=== PATIENT | female | born 1975 | race Caucasian/White ===

== ENCOUNTER → 2019-07-06 13:51 | Outpatient (CLI) | payer OTHER, SELFPAY ==
--- NOTE | ~2019-07-06 | MMUS_ITS ---
EXAMINATION: MM diagnostic mammo unilat RT, US breast RT limited HISTORY: Right breast asymmetry on screening mammogram TECHNIQUE: Additional 3-D tomosynthesis images of the right breast were performed and synthetic 2-D i mages were generated. CAD analysis was submitted and interpreted. High resolution limited right breas t ultrasound was performed. COMPARISON: 07/03/2019, 06/28/2018, 06/05/2017, 04/29/2016, 04/28/2016 FINDINGS: MAMMOGRAPHIC FINDINGS: There is a return to baseline fibroglandular appearance of the central right breast with spot jasmyn doug views. No suspicious mass or calcification are identified. ULTRASOUND: There is no evidence of focal abnormal solid or cystic lesion in the vicinity of the mammographic fin ding in question. IMPRESSION: 1. No mammographic or sonographic evidence of malignancy. 2. Recommend routine screening mammography in one year. BI-RADS Category 1: Negative Reviewed, dictated and finalized at location A. [employer] [employer] IMPRESSION: 1. No mammographic or sonographic evidence of malignancy. 2. Recommend routine screening mammography in one year. BI-RADS Category 1: Negative
== END ==
PROVIDERS: Visit Provider Obstetrics & Gynecology
DX: R92.8 Other abnormal and inconclusive findings on diagnostic imaging of breast (principal)
CPT/HCPCS: 76642; 77065

== ENCOUNTER 2020-03-27 06:50 | Outpatient (CLI) | payer OTHER, SELFPAY ==
[2020-03-27 07:21] LABS: Basophils Percent Auto 0.7 % (0.2-1.2); Eosinophils Absolute Auto 0.2 K/mm3 (0-0.3); Eosinophils Percent Auto 3.9 % (0-4.4); Hematocrit 39.5 % (37.0-47.0); Immature Granulocyte Absolute 0.01 K/mm3 (0.00-0.031); Immature Granulocyte Percent A 0.2 % (0-0.5); Lymphocytes Absolute Auto 1.96 K/mm3 (0.9-3.2); Lymphocytes Percent Auto 33.6 % (18.3-44.2); Mean Corpuscular HGB Conc 32.9 g/dl (32-36); Mean Corpuscular Hemoglobin 29.3 pg (26-34); Monocytes Absolute Auto 0.4 K/mm3 (0.1-0.6); Monocytes Percent Auto 7.5 % (2.6-8.5); Neutrophils Absolute Auto 3.2 K/mm3 (1.3-6.7); Neutrophils Percent Auto 54.1 % (45.5-73.1); Platelet Count Result 252 k/mm3 (150-375); Red Blood Count 4.44 M/mm3 (4.2-5.4); Red Cell Distribution Width 13.3 % (11.5-14.5); White Blood Count 5.8 K/mm3 (4.5-10.0)
[2020-03-27 07:37] LABS: Alanine Aminotransferase 46 U/L (4-35); Albumin Level 4.4 g/dL (3.5-5.1); Alkaline Phosphatase 54 U/L (38-126); Anion Gap 5 mmol/L (8-16); Aspartate Amino Transferase 51 U/L (14-36); Bilirubin,Total 0.5 mg/dL (0.2-1.3); Blood Urea Nitrogen 11 mg/dL (7-17); Calcium 9.3 mg/dL (8.4-10.2); Carbon Dioxide 30 mmol/L (22-30); Chloride 104 mmol/L (98-107); Cholesterol 238 mg/dL (0-200); Estimated Glomerular Filt Rate > 60; Glucose 98 mg/dL (65-105); HDL Direct 77 mg/dL; Potassium 4.3 mmol/L (3.4-5.0); Sodium 139 mmol/L (137-145); Triglycerides 106 mg/dL (<150)
[2020-03-27 07:48] LABS: LDL Cholesterol Direct 123 mg/dL
== END 2020-03-27 06:51 | disposition home or self-care (01) ==
PROVIDERS: PCP Internal Medicine; Visit Provider Clinical Nurse Specialist
DX: E78.5 Hyperlipidemia, unspecified (principal); Z13.228 Encounter for screening for other metabolic disorders
CPT/HCPCS: 36415; 80053; 80061; 85025

== ENCOUNTER 2020-07-04 17:00 | Outpatient (RCR) | payer OTHER, SELFPAY ==
--- NOTE | 2020-04-24 18:01 | PTOPEVAL ---
PHYSICAL THERAPY EVALUATION AND PLAN OF CARE Thank you for referring Yani James to [facility].? The patient is scheduled to be seen for therapy? 1x/week for 5 weeks. Please review, sign, date and return this plan of care BRANDON. I agree with and certify that the following plan of care is medically necessary. Referring Physician Date Attending Provider: Azeb Solorio NP Evaluation Diagnosis cervical pain, left sided lumbar pain Onset cervical pain = 1month, left sided lumbar pain = chronic Subjective Information cervical pain: reports left Query Text:As Reported By Patient/ sided pain along left sided of Family neck and left medial border of left scpaular and sometimes radiates to the left arm. Ibuprofen helps but caballero sont feel good on stomach. lumbar pain: several years; left sided lumbar pain that wraps around the hip. has had therapy for this in the past. Sitting for a long time and then standing is more difficult Diagnostic Tests X-Rays For This Problem Yes: 2017: cervical stenosis. Self Report Pain Assessment Left Spine, Lumbar Reported Pain Level 4 Pain Description Aching,Tightness Pain Frequency Chronic,Continuous Other Pain Aggravating Factors sitting or laying for prolonged periods Pain Behaviors None Left Spine, Cervical Reported Pain Level 3 Pain Description Aching,Stabbing,Tightness Pain Frequency Acute,Continuous Lowest Pain Intensity 2 Greatest Pain Intensity 10 Other Pain Aggravating Factors working Pain Score Pain Score 3,4: Self Report Interventions Used Interventions Used By Clinicians Exercise Pain Relief Interventions Used By Medication Patient Cervical and Lumbar ROM Cervical ROM Cervical Flexion (0-60) 45 Query Text:Active in Degrees Cervical Extension (0-70) 60 Query Text:Active in Degrees Cervical Rotation Right (0-90) 80 Query Text:Passive in Degrees Cervical Rotation Left (0-90) 60 Query Text:Active in Degrees Cervical ROM Comments left rotation = left lateral lean to further motion - no symptoms noted other than some stretching Lumbar ROM Lumbar Extension (0-40)
--- NOTE | 2020-04-29 13:09 | PCPTNOTE ---
Patient called & cancelled scheduled appointment for tomorrow, 04/30/2020, due to family emergency.
--- NOTE | 2020-05-06 09:32 | PCPTNOTE ---
Patient called & cancelled scheduled appointment for 05/09 due stating she has to work.
--- NOTE | 2020-05-28 17:57 | PTOPEVAL ---
PHYSICAL THERAPY PLAN OF CARE UPDATE AND PROGRESS REPORT Thank you for referring Yani James to [facility].? The patient is scheduled to be seen for therapy? 1x/week for 5 weeks. Please review, sign, date and return this plan of care BRANDON. I agree with and certify that the following plan of care is medically necessary. Referring Physician Date Attending Provider: Azeb Solorio NP Progress Diagnosis cervical pain, left sided lumbar pain Onset cervical pain = 1month, left sided lumbar pain = chronic Subjective Information cervical pain: much improved. Query Text:As Reported By Patient/ states cervical pain is Family significantly decreased for the most part. lumbar pain: several years; continues to have significant left sided low back pain. She does feel like therapy is helping, but slowly. Self Report Pain Assessment Left Spine, Lumbar Reported Pain Level 4 Pain Description Aching,Tightness Pain Frequency Chronic,Continuous Other Pain Aggravating Factors sitting or laying for prolonged periods Pain Behaviors None Left Spine, Cervical Reported Pain Level 1 Pain Description Aching,Stabbing,Tightness Pain Frequency Acute,Continuous Lowest Pain Intensity 2 Greatest Pain Intensity 10 Other Pain Aggravating Factors working Pain Score Pain Score 4,1: Self Report Interventions Used Interventions Used By Clinicians Exercise,Joint Mobilization, Manual Therapy Techniques Pain Relief Interventions Used By Exercise Patient Cervical and Lumbar ROM Cervical ROM Cervical Flexion (0-60) 50 Query Text:Active in Degrees Cervical Extension (0-70) 60 Query Text:Active in Degrees Cervical Rotation Right (0-90) 80 Query Text:Passive in Degrees Cervical Rotation Left (0-90) 75 Query Text:Active in Degrees Upper Extremity Range of Motion General Upper Extremity Range of Motion Reason Not Measured WFL/Left,WFL/Right Lower Extremity Muscle Strength Testing General Lower Extremity Strength Gross Lower Extremity Strength hip flexion: 4/5 knee flexion/extension: 5/5 hip abduction: right = 3+/5, left = 4-/5 hip extension: 3/5 each side Upper Extremity Muscle Strength Testing General Upper Extremity Strength Gross Upper Extremity Strength Comments right grossly: 4+/5
--- NOTE | 2020-06-11 13:12 | PCPTNOTE ---
Patient called & cancelled scheduled appointment this date due to work.
--- NOTE | 2020-06-18 09:08 | PCPTNOTE ---
Patient called & cancelled scheduled appointment this date due to work.
--- NOTE | 2020-07-01 17:40 | PCPTNOTE ---
Patient did not show up for scheduled appointment this date.
--- NOTE | 2020-07-04 17:51 | PTOPEVAL ---
PHYSICAL THERAPY DISCHARGE NOTE Thank you for referring Yani James to [facility].? Please review, sign, date and return this plan of care BRANDON. I agree with and certify that the following plan of care is medically necessary. Referring Physician Date Attending Provider: Azeb Solorio NP Discharge Diagnosis cervical pain, left sided lumbar pain Onset cervical pain = 1month, left sided lumbar pain = chronic Subjective Information cervical pain:continues to be Query Text:As Reported By Patient/ much improved without Family significant complaint lumbar pain: states she feels like she is overstretching the lumbar spine and pain is consistent to somewhat improved Self Report Pain Assessment Left Spine, Lumbar Reported Pain Level 4 Pain Description Aching,Tightness Pain Frequency Chronic,Continuous Other Pain Aggravating Factors sitting or laying for prolonged periods Pain Behaviors None Pain Score Pain Score 4: Self Report Interventions Used Interventions Used By Clinicians Exercise,Joint Mobilization, Manual Therapy Techniques Pain Relief Interventions Used By Exercise Patient Cervical and Lumbar ROM Lumbar ROM Lumbar Flexion Active Ankle Query Text:Hands to: Lumbar Extension (0-40) 12 Query Text:Active in Degrees Lateral Rotation Right (0-45) 30 Query Text:Active in Degrees Lateral Rotation Left (0-45) 30 Query Text:Active in Degrees Lower Extremity Muscle Strength Testing General Lower Extremity Strength Gross Lower Extremity Strength hip flexion: 4+/5 knee flexion/extension: 5/5 hip abduction: right = 4/5, left = 4/5 hip extension: 3+/5 each side Upper Extremity Muscle Strength Testing General Upper Extremity Strength Gross Upper Extremity Strength Comments right grossly: 5/5 left grossly 5/5 Muscle Length Testing Muscle Length Testing Latissmus Dorsi Muscle Length (R) Mild Tightness,(L) Mild Tightness Upper Trapezius Muscle Length (R) Mild Tightness,(L) Mild Tightness Levaetor Scapulae Muscle Length (R) Mild Tightness,(L) Mild Tightness Sternocleidomastoid Muscle Length (R) Mild Tightness,(L) Mild Tightness Pectoralis Major- Clavicular Fibers (R) M
== END 2020-07-05 07:49 | disposition home or self-care (01) ==
LOC: ANHPT 17:00
PROVIDERS: PCP Internal Medicine; Visit Provider Nurse Practitioner
DX: M54.2 Cervicalgia (principal); M54.5 Low back pain
CPT/HCPCS: 97110; 97140; 97162

== ENCOUNTER 2020-07-06 06:56 | Outpatient (CLI) | payer OTHER, SELFPAY ==
[2020-07-06 08:04] LABS: Alanine Aminotransferase 21 U/L (4-35); Albumin Level 4.3 g/dL (3.5-5.1); Alkaline Phosphatase 68 U/L (38-126); Anion Gap 4 mmol/L (8-16); Aspartate Amino Transferase 32 U/L (14-36); Bilirubin,Total 0.4 mg/dL (0.2-1.3); Blood Urea Nitrogen 20 mg/dL (7-17); Calcium 9.5 mg/dL (8.4-10.2); Carbon Dioxide 29 mmol/L (22-30); Chloride 105 mmol/L (98-107); Estimated Glomerular Filt Rate > 60; Glucose 94 mg/dL (65-105); Potassium 4.4 mmol/L (3.4-5.0); Sodium 138 mmol/L (137-145)
[2020-07-06 08:10] LABS: Rheumatoid Factor < 8.6 IU/ML (<12)
== END 2020-07-06 06:57 | disposition home or self-care (01) ==
PROVIDERS: PCP Internal Medicine; Visit Provider Nurse Practitioner
DX: R74.01 Elevation of levels of liver transaminase levels (principal); M25.50 Pain in unspecified joint
CPT/HCPCS: 36415; 80053; 86430

== ENCOUNTER → 2020-07-06 07:43 | Outpatient (CLI) | payer OTHER, SELFPAY ==
--- NOTE | ~2020-07-06 | MM_ITS ---
EXAMINATION: MM screening trey BI w kvng HISTORY: Screening mammogram TECHNIQUE: Craniocaudal and mediolateral oblique 3-D tomosynthesis images were obtained and synthetic 2-D images were generated. CAD analysis was submitted and interpreted. COMPARISON: 07/06/2019 diagnostic right mammogram and limited right breast ultrasound examination 07/03/2019, 06/28/2018, 06/05/2017 bilateral digital screening mammogram examinations BREAST PARENCHYMAL COMPOSITION: There are scattered areas of fibroglandular density. FINDINGS: There is asymmetry in the upper outer quadrant of the right breast. Diagnostic right mammog natalie and right breast ultrasound examination are recommended to differentiate possible 7 mm mass (MLO 24/73) from summation shadow of overlapping fibroglandular stroma. Scattered bilateral benign appearing microcalcifications are noted. Otherwise there is no evidence of suspicious mass, calcification, or architectural distortion to sugg est malignancy in either breast. There has been no other suspicious interval change. IMPRESSION: 1. Upper outer quadrant right breast asymmetry 2. Diagnostic right mammogram and right breast ultrasound examination are recommended. BI-RADS Category 0: Incomplete: Needs additional imaging evaluation. 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 [employer] DEVEL[employer] IMPRESSION: 1. Upper outer quadrant right breast asymmetry 2. Diagnostic right mammogram and right breast ultrasound examination are recom mended. BI-RADS Category 0: Incomplete: Needs additional imaging evaluation.
== END ==
PROVIDERS: Visit Provider Obstetrics & Gynecology
DX: Z12.31 Encounter for screening mammogram for malignant neoplasm of breast (principal); R92.8 Other abnormal and inconclusive findings on diagnostic imaging of breast
CPT/HCPCS: 77063; 77067

== ENCOUNTER → 2020-07-09 12:53 | Outpatient (CLI) | payer OTHER, SELFPAY ==
--- NOTE | ~2020-07-09 | MMUS_ITS ---
EXAMINATION: MM diagnostic mammo unilat RT, US breast RT limited HISTORY: Right breast asymmetry on screening mammogram TECHNIQUE: Additional 3-D tomosynthesis images of the right breast were performed and synthetic 2-D i mages were generated. CAD analysis was submitted and interpreted. High resolution limited right breas t ultrasound was performed. COMPARISON: 07/06/2020, 07/06/2019, 07/03/2019, 06/28/2018, 06/05/2017 FINDINGS: MAMMOGRAPHIC FINDINGS: A mass in the middle third of the upper outer quadrant of the breast 10:00 location 6 cm from the nip ple has a waxing and waning appearance compared to prior examinations. There is also a stable 4 mm ob scured mass in the middle third of the breast at the 11:00 location 7 cm from the nipple. ULTRASOUND: There is a cyst at the 9:00 location 6 cm from the nipple. Cysts are also noted at the 10:00 location 3 cm and 8 cm from the nipple. IMPRESSION: 1. No mammographic or sonographic evidence of malignancy. 2. Recommend routine screening mammography in one year. BI-RADS Category 2: Benign finding(s). 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 [employer] IMPRESSION: 1. No mammographic or sonographic evidence of malignancy. 2. Recommend routine screening mammography in one year. BI-RADS Category 2: Benign finding(s).
== END ==
PROVIDERS: Visit Provider Obstetrics & Gynecology
DX: R92.8 Other abnormal and inconclusive findings on diagnostic imaging of breast (principal)
CPT/HCPCS: 76642; 77065

== ENCOUNTER 2020-08-15 16:38 | Outpatient (CLI) | payer OTHER, SELFPAY ==
--- NOTE | ~2020-08-15 | MR_ITS ---
EXAMINATION: MR lumbar spine wo con EXAM DATE: 08/15/2020 17:14 INDICATION: Low back pain. TECHNIQUE: Multi-sequential, multiplanar MR images of the lumbar spine were obtained without contrast . Sagittal T1, T2, T2 fat saturation images. Axial T2 weighted images. Comparison is made to prior examination from 11/18/2016. FINDINGS: The conus medullaris terminates at the T12-L1 level and has normal signal intensity and mor phology. There are scattered focal signal abnormalities consistent with hemangiomata, otherwise with out focal suspicious marrow signal abnormalities. There is mild disc disease at all lumbar levels. M ild loss of the L3-4 and L4-5 disc height. The vertebral bodies are aligned in the AP dimension. Para spinal soft tissue is unremarkable. Level by level evaluation: T12-L1: Disc does not extend beyond the endplate margin. Facet arthropathy: None. Neural foraminal stenosis: No stenosis. Central canal stenosis: No stenosis. L1-L2: Disc does not extend beyond the endplate margin. Facet arthropathy: Mild. Neural foraminal stenosis: No stenosis. Central canal stenosis: No stenosis. L2-L3: There is a minimal diffuse disc bulge. Facet arthropathy: Mild. Neural foraminal stenosis: No stenosis. Central canal stenosis: No stenosis. L3-L4: There is a mild diffuse disc bulge. Facet arthropathy: Mild to moderate. Neural foraminal stenosis: No stenosis. Central canal stenosis: No stenosis. L4-L5: There is a mild diffuse disc bulge. Facet arthropathy: Mild to moderate. Neural foraminal stenosis: Minimal bilateral. Central canal stenosis: Mild. L5-S1: There is a mild diffuse disc bulge. Facet arthropathy: Mild to moderate. Neural foraminal stenosis: No stenosis. Central canal stenosis: No stenosis. IMPRESSION: 1. Mild lumbar spondylosis with minimal progression compared to 2017. Reviewed, dictated and finalized at location D. 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
== END 2020-08-15 16:39 | disposition home or self-care (01) ==
PROVIDERS: PCP Internal Medicine; Visit Provider Nurse Practitioner
DX: M47.896 Other spondylosis, lumbar region (principal)
CPT/HCPCS: 72148

== ENCOUNTER → 2021-03-20 15:24 | Outpatient (CLI) | payer OTHER, SELFPAY ==
--- NOTE | ~2021-03-20 | XR_ITS ---
XR sacroiliac joints min 3V DATE: 03/20/2021 15:36 INDICATION: Sacroiliac pain TECHNIQUE: Multiple frontal and oblique views of the sacroiliac joints COMPARISON: None FINDINGS: The sacral iliac joints are normally aligned. There is no evidence of fracture, dislocation , erosive change or ankylosis. IMPRESSION: Negative sacroiliac joints Reviewed, dictated and finalized at Location A. Reviewed, dictated and finalized at location B. IMPRESSION: Negative sacroiliac joints
== END ==
PROVIDERS: Visit Provider Nurse Practitioner Family
DX: M53.3 Sacrococcygeal disorders, not elsewhere classified (principal)
CPT/HCPCS: 72202

== ENCOUNTER → 2021-07-09 11:10 | Outpatient (CLI) | payer OTHER, SELFPAY ==
--- NOTE | ~2021-07-09 | MM_ITS ---
EXAMINATION: MM screening [facility] BI w kvng HISTORY: Screening mammogram TECHNIQUE: Craniocaudal and mediolateral oblique 3-D tomosynthesis images were obtained and synthetic 2-D images were generated. CAD analysis was submitted and interpreted. COMPARISON: 07/09/2020, 07/06/2020, 07/06/2019, 07/03/2019, 06/28/2018, 06/05/2017 BREAST PARENCHYMAL COMPOSITION: There are scattered areas of fibroglandular density. FINDINGS: A right breast cyst is again noted. There is no evidence of suspicious mass, calcification, or architectural distortion to suggest malignancy in either breast. There has been no suspicious int erval change. IMPRESSION: 1. No mammographic evidence of malignancy. 2. Recommend routine screening mammography in one year. BI-RADS Category 2: Benign finding(s). 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
== END ==
PROVIDERS: PCP Internal Medicine; Visit Provider Obstetrics & Gynecology
DX: Z12.31 Encounter for screening mammogram for malignant neoplasm of breast (principal)
CPT/HCPCS: 77063; 77067

== ENCOUNTER 2021-08-30 06:58 | Outpatient (CLI) | payer OTHER, SELFPAY ==
[2021-08-30 07:36] LABS: Basophils Percent Auto 0.5 % (0.2-1.2); Eosinophils Absolute Auto 0.2 K/mm3 (0-0.3); Eosinophils Percent Auto 2.5 % (0-4.4); Hematocrit 39.9 % (37.0-47.0); Hemoglobin 12.9 g/dL (12.0-15.0); Immature Granulocyte Absolute 0.02 K/mm3 (0.00-0.031); Immature Granulocyte Percent A 0.3 % (0-0.5); Lymphocytes Absolute Auto 1.88 K/mm3 (0.9-3.2); Lymphocytes Percent Auto 31.1 % (18.3-44.2); Mean Corpuscular HGB Conc 32.3 g/dl (32-36); Mean Corpuscular Hemoglobin 29.5 pg (26-34); Mean Corpuscular Volume 91.3 fl (80-100); Mean Platelet Volume 9.3 fl (7.4-10.4); Monocytes Absolute Auto 0.6 K/mm3 (0.1-0.6); Monocytes Percent Auto 9.1 % (2.6-8.5); Neutrophils Absolute Auto 3.4 K/mm3 (1.3-6.7); Neutrophils Percent Auto 56.5 % (45.5-73.1); Platelet Count Result 247 k/mm3 (150-375); Red Blood Count 4.37 M/mm3 (4.2-5.4); Red Cell Distribution Width 13.4 % (11.5-14.5)
[2021-08-30 07:47] LABS: Alanine Aminotransferase 22 U/L (4-35); Albumin Level 4.1 g/dL (3.5-5.1); Alkaline Phosphatase 70 U/L (38-126); Anion Gap 3 mmol/L (8-16); Aspartate Amino Transferase 30 U/L (14-36); Bilirubin,Total 0.5 mg/dL (0.2-1.3); Blood Urea Nitrogen 12 mg/dL (7-17); Calcium 8.8 mg/dL (8.4-10.2); Carbon Dioxide 28 mmol/L (22-30); Chloride 106 mmol/L (98-107); Estimated Glomerular Filt Rate > 60; Glucose 104 mg/dL (65-110); Potassium 4.1 mmol/L (3.4-5.0); Sodium 137 mmol/L (137-145)
[2021-09-06 12:14] LABS: Gliadin AB, IgG <1.0 U/mL (<15.0); Reticulin IgA Negative (Negative); TTG IGA AB <1.0 U/mL (<15.0)
== END 2021-08-30 06:59 | disposition home or self-care (01) ==
LOC: ANHLAB 07:01
PROVIDERS: PCP Internal Medicine; Visit Provider Clinical Nurse Specialist
DX: R19.7 Diarrhea, unspecified (principal); D64.9 Anemia, unspecified; R74.01 Elevation of levels of liver transaminase levels; F41.9 Anxiety disorder, unspecified
CPT/HCPCS: 36415; 80053; 83516; 84443; 85025; 86255

== ENCOUNTER 2021-10-06 00:38 | Day surgery (SDC) | payer OTHER, SELFPAY ==
[2021-09-23 10:39] VITALS: BMI 32.3
--- NOTE | 2021-10-03 14:17 | PM.HPGS ---
History of Present Illness History of Present Illness Consent: Risks, benefits, and alternatives have been discussed and questions answered. Patient agrees to proceed with procedure. Chief complaint: diarrhea Narrative: Yani James is a 46 year old female Was referred for colon cancer screening. She is not aware of any family history of colon cancer. She recently has had some issues with her bowels being loose. she had taking a probiotic for few weeks with slight improvement . Review of Systems Review of Systems: All systems reviewed & are unremarkable except as noted in HPI and below PMFSH Past Medical History Medical History Abnormal heart sounds Anemia Anxiety Asthma Hyperlipidemia Vertigo Family History Family History Father Family history of diabetes mellitus in first degree relative Sibling Diabetes mellitus Mother Family history of rheumatoid arthritis Lung cancer Social History Social History Smoking status: Never smoker Second hand tobacco smoke exposure: No Alcohol intake: current Drinks per week: 1 Substance use type: does not use Living arrangements: with family Spiritual care concerns: No Meds Home Medications and Allergies Home Medications Medication Instructions Recorded Confirmed Type ibuprofen 200 mg capsule 200 mg PO Q6H PRN 08/22/21 10/06/21 History sertraline 25 mg tablet 25 mg PO DAILY #30 tablet 09/19/21 10/06/21 Rx Allergies Allergy/AdvReac Type Severity Reaction Status Date / Time No Known Allergies Allergy Verified 10/06/21 07:43 Exam Const: General: alert Orientation/consciousness: patient oriented x3 Resp: Auscultation: clear to auscultation bilaterally Cardio: Rhythm: regular rhythm GI: GI Palp: Yes Soft to palpation and No Tenderness to palpation present (GI) Neuro: General: patient oriented x3 Assessment and Plan Assessment and plan (1) Colon cancer screening: Code(s): Z12.11 - Encounter for screening for malignant neoplasm of colon Status: Acute Assessment and Plan: Colonoscopy with possible biopsy or polypectomy or cautery or injection of substances.
[2021-10-06 07:44] VITALS: BP 131/80; PULSE 79; RESP 16; TEMP 36.3; O2SAT 100
[2021-10-06] MEDS: LACTATED RINGERS 1,000 ML 150 ML IV CONT (07:46)
--- NOTE | 2021-10-06 08:12 | WPDANESEPPF ---
Anes - Initial Pre Proc Eval Procedure: Operation Date: 10/06/21 08:30 Proposed Procedures p Colonoscopy - Alcon Mullen MD Date/Time: 10/06/21 08:12 Surgeon: Alcon Mullen MD Pre Op Diagnosis: diarrhea Patient Data Age: 46 Gender: F Height: 1.63 m Weight: 82.9 kg Last Vital Signs Temp 97.3 F L 10/06/21 07:44 Pulse 79 10/06/21 07:44 Resp 16 10/06/21 07:44 BP 131/80 10/06/21 07:44 Pulse Ox 100 10/06/21 07:44 Allergies Allergy/AdvReac Type Severity Reaction Status Date / Time No Known Allergies Allergy Verified 10/06/21 07:43 Home Medications Medication Instructions Recorded Confirmed Type ibuprofen 200 mg capsule 200 mg PO Q6H PRN 08/22/21 10/06/21 History sertraline 25 mg tablet 25 mg PO DAILY #30 tablet 09/19/21 10/06/21 Rx Patient hx anesthesia problems: none Family hx anesthesia problems: none Results Review: All pre-operative results and documents have been reviewed as part of the pre-operative evaluation. [facility] Past Medical History Medical History Abnormal heart sounds Anemia Anxiety Asthma Hyperlipidemia Vertigo Family History Family History Father Family history of diabetes mellitus in first degree relative Sibling Diabetes mellitus Mother Family history of rheumatoid arthritis Lung cancer Social History Social History Smoking status: Never smoker Second hand tobacco smoke exposure: No Alcohol intake: current Drinks per week: 1 Substance use type: does not use Living arrangements: with family Spiritual care concerns: No Anes - Eval Final PreProcedure Day of Procedure 10/06/21 08:12 Patient weight: obese Heart: regular rate and rhythm Lungs: clear to auscultation Airway: Mallampati scale class II Neurological: alert and oriented Last oral intake: >/= 8 hours ASA classification: II Emergent: no Anesthetic plan: proceed Anesthesia type and monitoring: general GIVS and standard monitoring Results Review: All pre-operative results and documents have been reviewed as part of the pre-operative evaluation. Informed Consent: The patient's anesthetic plan and its attendant risks and benefits were discussed with the patient/family/POA. Questions were solicited and answers provided to the satisfaction of the patient/family/POA.
[2021-10-06] MEDS: SIMETHICONE ORAL SUSPENSION 20 MG/0.3 ML 30 ML BOTTLE 0.6 ML IRRIGATION (08:37)
[2021-10-06 08:47] VITALS: BP 106/69; PULSE 74; RESP 18; O2SAT 100
[2021-10-06 08:57] VITALS: BP 126/60; PULSE 77; RESP 20; O2SAT 100
[2021-10-06 09:07] VITALS: BP 128/74; PULSE 72; RESP 20; O2SAT 100
== END 2021-10-06 09:14 | disposition home or self-care (01) ==
PROVIDERS: PCP Internal Medicine; Visit Provider Internal Medicine Gastroenterology
PROC: 0DJD8ZZ Inspection of Lower Intestinal Tract, Via Natural or Artificial Opening Endoscopic (ICD-10-PCS; CPT 45378; principal; 2021-10-06 08:30)
DX: Z12.11 Encounter for screening for malignant neoplasm of colon (principal); R19.7 Diarrhea, unspecified; F41.9 Anxiety disorder, unspecified; E66.9 Obesity, unspecified; Z68.31 Body mass index [BMI] 31.0-31.9, adult
CPT/HCPCS: 45380; 88305; J2704; J7120

== ENCOUNTER 2021-12-20 06:49 | Outpatient (CLI) | payer OTHER, SELFPAY ==
[2021-12-20 07:18] LABS: Cholesterol 274 mg/dL (0-200); HDL Direct 81 mg/dL; Triglycerides 85 mg/dL (<150)
[2021-12-20 07:29] LABS: LDL Cholesterol Direct 123 mg/dL
== END 2021-12-20 06:50 | disposition home or self-care (01) ==
LOC: ANHLAB 06:52
PROVIDERS: PCP Internal Medicine; Visit Provider Clinical Nurse Specialist
DX: E78.5 Hyperlipidemia, unspecified (principal)
CPT/HCPCS: 36415; 80061

== ENCOUNTER 2022-02-25 16:00 | Outpatient (RCR) | payer OTHER, SELFPAY ==
--- NOTE | 2021-12-05 09:03 | PTOPEVAL ---
Thank you for referring Yani James to [facility].? She is scheduled to be seen for therapy? 2 x/week for 5 weeks. Please review, sign, date and return this plan of care BRANDON. I agree with and certify that the following plan of care is medically necessary. Referring Physician Date Attending Provider: Bronwyn Melendez APN Past Medical History Source of Past Medical History Recalled from Previous Visit, Confirmed with Patient/Family Neurological History Hx Neurological Disorders No Significant History Cardiovascular History Hx Hypercholesterolemia Yes: no meds Respiratory History Hx Asthma Yes: as a child Gastrointestinal History Hx Gastrointestinal Disorders No Significant History Genitourinary History Hx Genitourinary Disorders No Significant History Musculoskeletal History Hx Arthritis Yes: in back Hx Other Musculoskeletal Disorders Yes: B shoulder pain Hematological History Hx Hematological Disorders No Significant History Endocrine History Hx Endocrine Disorders No Significant History HEENT History Hx HEENT Disorders No Significant History Integumentary History Hx Skin Disorders No Significant History Reproductive History Hx Reproductive Disorders No Significant History Psychosocial History Hx Anxiety Yes Pain History History of Any Previous or Ongoing No Significant History Instance of Pain Anesthesia History Hx Anesthesia Reactions No Significant History Other History Hx Cancer Yes: basal cell skin cancer Evaluation Information Diagnosis low back pain Onset Jun 2021 Subjective Information gradual increase in back pain; Query Text:As Reported By Patient/ chronic back pain for about Family past 2 years; saw neurosurgery, had xrays--mild issues and sent to PT; have had SI joint injection in past ~ 1 yr ago, did not help; do some stretching at home, seems to make it worse; Diagnostic Tests X-Rays For This Problem Yes: per pt- mild disc issues MRI For This Problem No Other Tests For This Problem No Previous Treatments Previous Treatments For This Problem previous PT here ~ 2019, not really help Prior Level of Function Activity Level (Last 3 Months) 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
--- NOTE | 2022-01-09 08:45 | PTOPEVAL ---
PHYSICAL THERAPY RE-EVALUATION AND UPDATED PLAN OF CARE 01-09-22 Refer to the clinical summary below, for her status today, compared to the initial evaluation. The goals were partially met. Continue PT treatment 2x/wk for 4 weeks. Thank you for referring Yani James to [facility].? Please review, sign, date and return this updated plan of care [facility]. I agree with and certify that the following plan of care is medically necessary. Referring Physician Date Attending Provider: Bronwyn Melendez APN Subjective Information Yani reports: feel like Query Text:As Reported By Patient/ doing better, not fixed yet; Family able to manage the pain better ; not having the cramping anymore; had massage therapist work the area-- really helped; traction helped some; want to continue therapy; Pain Assessment Pain Scale Pain Scale Used Numeric (1 - 10) Self Report Pain Assessment Bilateral Spine, Lumbar Reported Pain Level 4 Pain Description Pinching,Tightness Pain Frequency Chronic,Intermittent Other Pain Description kind of a nerve pain, pinching L low back area Lowest Pain Intensity 0 Greatest Pain Intensity 7 Pain Aggravating Factors Exercise/Activity Other Pain Aggravating Factors standing, vaccuming, work Pain Behaviors Grimacing,Guarding Additional Pain Score Comments at work, is stretching during day and leaning on wall to correct posture; generally sleeping is OK; some pain increase with walking dog and training dog with treats Pain Relief Interventions Used By Heat,Inactivity/Rest, Patient Medication,Position Change, Sitting Other Alleviating Interventions ibuprofen; Lumbar ROMComments standing trunk ROM: side bend to R increase pain and catching/ L no pain- range B fingers to knees; rotation R/L ranges equal range with to L slight catch; in all 4's- arch/sag with good lumbar spinal motion, tightness/decreased motion over thoracic spine; Gross Lower Extremity Strength functional strength testing: -prone hip extension R 30/L 45 reps- reports R leg weaker
--- NOTE | 2022-01-28 09:26 | PCPTNOTE ---
Patient called & cancelled scheduled appointment this date no reason given.
--- NOTE | 2022-02-04 16:22 | PTOPPROG ---
Evaluation Information Assessment Status Re-evaluation Subjective Information Yani reports: feels like back is not doing any better, still hurting Assessment PT Clinical Summary Yani has received 15 PT sessions for low back pain. Compared to the last reevaluation: pain rating has increased at the low rating from 0-2/10 and the high rating from 7 to 8/10; Self assessment Oswestry score has improved by 2%; increased hip and trunk strength; continues to have pain with standing trunk flexion, extension, side bend and rotation to R and L; supine bridge previously did not cause pain, but now increases her pain; With palpation, there is tenderness and pain over L lumbar, sacral and SIJ areas. With box lifting of 15# with B UE's, pain is increase and she could not lift any more weight. She is having some pain relief with mechanical traction and manual therapy. Discussed with her to follow up with the dr; she is going to call for appointment. Continue PT 1x/week to further progress her home exercises and modalities for pain control. Plan of Care Interventions Electrical Stimulation,Hot Pack/Cold Pack,Manual Therapy,Mechanical Traction,Patient/Caregiver Education,Therapeutic Activities,Therapeutic Exercise,Ultrasound PT Services Indicated Yes Treatment Frequency and 1x/wk for 6 weeks Duration These treatments will address the objective and functional deficits as defined above. The patient will be advanced safely and appropriately in order for the patient to progress towards his/her prior level of function. Additional exercises will be introduced and as well as a comprehensive home exercise program upon discharge, if needed, ?to ensure carryover of functional gains achieved in the clinic. This treatment plan has been reviewed and agreement upon by the patient.
--- NOTE | 2022-02-13 16:22 | PCPTNOTE ---
Patient called & cancelled scheduled appointment this date due to car breaking down.
--- NOTE | 2022-02-19 12:30 | PCPTNOTE ---
Patient called & cancelled scheduled appointment this date due to work.
--- NOTE | 2022-02-26 13:29 | PCPTNOTE ---
This treatment is being continued on visit number [id number]. Please see documentation on both accounts to view progress. Completed interventions, outcomes, and problems have been marked as Inactive to facilitate the copying of the Care plan routine for recurring accounts.
== END 2022-02-26 13:14 | disposition home or self-care (01) ==
LOC: ANHPT 16:00
PROVIDERS: PCP Internal Medicine; Visit Provider Nurse Practitioner Gerontology
DX: M54.50 Low back pain, unspecified (principal); M46.1 Sacroiliitis, not elsewhere classified
CPT/HCPCS: 97012; 97110; 97112; 97140; 97161; 97530

== ENCOUNTER 2022-03-11 16:45 | Outpatient (RCR) | payer OTHER, SELFPAY ==
--- NOTE | 2022-03-16 15:38 | PCPTNOTE ---
pt called and canceled today's reeval due to being out of town and not return in time to make it to appt;
--- NOTE | 2022-04-27 11:57 | PCPTNOTE ---
PHYSICAL THERAPY DISCHARGE 04-27-22 Attending Provider: Bronwyn Melendez APN Patient:Yani James Date of :1975 Yani has not returned for any further treatments since 03/11/2022, therefore she will be discharged at this time. She has received 18 PT sessions, from December 05 to March 11 for the diagnosis of low back pain. I recently talked with her, and she reports she continues to have pain and did not feel that the PT was helping anymore. She continues to do her home exercises. Thank you for referring this patient to [facility].
== END 2022-04-27 12:30 | disposition home or self-care (01) ==
LOC: ANHPT 16:45
PROVIDERS: PCP Internal Medicine; Visit Provider Nurse Practitioner Gerontology
DX: M54.50 Low back pain, unspecified (principal); M46.1 Sacroiliitis, not elsewhere classified
CPT/HCPCS: 97014; 97110; 97140; 97530; G0283

== ENCOUNTER → 2022-09-03 09:25 | Outpatient (CLI) | payer OTHER, SELFPAY ==
--- NOTE | ~2022-09-03 | MM_ITS ---
EXAMINATION: MM screening trey BI w kvng HISTORY: Screening TECHNIQUE: Craniocaudal and mediolateral oblique 3-D tomosynthesis images were obtained and synthetic 2-D images were generated. CAD analysis was submitted and interpreted. COMPARISON: Comparison to multiple prior studies sequentially, with oldest reviewed study dated 06/28. BREAST PARENCHYMAL COMPOSITION: There are scattered areas of fibroglandular density. FINDINGS: Stable benign-appearing breast calcifications. There is no evidence of suspicious mass, navid cification, or architectural distortion to suggest malignancy in either breast. There has been no nadiya picious interval change. IMPRESSION: 1. No mammographic evidence of malignancy. 2. Recommend routine screening mammography in one year. BI-RADS Category 1: Negative Reviewed, dictated and finalized at location A.
== END ==
PROVIDERS: PCP Internal Medicine; Visit Provider Obstetrics & Gynecology
DX: Z12.31 Encounter for screening mammogram for malignant neoplasm of breast (principal)
CPT/HCPCS: 77063; 77067

== ENCOUNTER 2022-11-13 06:52 | Outpatient (CLI) | payer OTHER, SELFPAY ==
[2022-11-13 07:23] LABS: Basophils Percent Auto 0.6 % (0.2-1.2); Eosinophils Absolute Auto 0.1 K/mm3 (0-0.3); Eosinophils Percent Auto 2.6 % (0-4.4); Hematocrit 38.7 % (37.0-47.0); Hemoglobin 12.7 g/dL (12.0-15.0); Immature Granulocyte Absolute 0.01 K/mm3 (0.00-0.031); Immature Granulocyte Percent A 0.2 % (0-0.5); Lymphocytes Percent Auto 36.8 % (18.3-44.2); Mean Corpuscular HGB Conc 32.8 g/dl (32-36); Mean Corpuscular Hemoglobin 29.6 pg (26-34); Mean Corpuscular Volume 90.2 fl (80-100); Mean Platelet Volume 9.5 fl (7.4-10.4); Monocytes Absolute Auto 0.4 K/mm3 (0.1-0.6); Monocytes Percent Auto 8.1 % (2.6-8.5); Neutrophils Absolute Auto 2.8 K/mm3 (1.3-6.7); Neutrophils Percent Auto 51.7 % (45.5-73.1); Platelet Count Result 263 k/mm3 (150-375); Red Blood Count 4.29 M/mm3 (4.2-5.4); Red Cell Distribution Width 13.5 % (11.5-14.5); White Blood Count 5.4 K/mm3 (4.5-10.0)
[2022-11-13 07:39] LABS: Alanine Aminotransferase 23 U/L (6-35); Albumin Level 4.1 g/dL (3.5-5.1); Alkaline Phosphatase 56 U/L (38-126); Anion Gap 4 mmol/L (8-16); Aspartate Amino Transferase 26 U/L (14-36); Bilirubin,Total 0.4 mg/dL (0.2-1.3); Blood Urea Nitrogen 14 mg/dL (7-17); Calcium 9.2 mg/dL (8.4-10.2); Carbon Dioxide 27 mmol/L (22-30); Chloride 106 mmol/L (98-107); Cholesterol 253 mg/dL (0-200); Estimated Glomerular Filt Rate > 60; Glucose 96 mg/dL (65-110); HDL Direct 83 mg/dL; Potassium 4.5 mmol/L (3.4-5.0); Sodium 137 mmol/L (137-145); Triglycerides 161 mg/dL (<150)
[2022-11-13 07:50] LABS: LDL Cholesterol Direct 133 mg/dL
== END 2022-11-13 06:53 | disposition home or self-care (01) ==
PROVIDERS: PCP Internal Medicine; Visit Provider Clinical Nurse Specialist
DX: Z13.228 Encounter for screening for other metabolic disorders (principal); F41.9 Anxiety disorder, unspecified; E78.5 Hyperlipidemia, unspecified; E55.9 Vitamin D deficiency, unspecified
CPT/HCPCS: 36415; 80053; 80061; 82306; 84443; 85025

== ENCOUNTER 2023-10-05 10:02 | Outpatient (CLI) | payer OTHER, SELFPAY ==
--- NOTE | ~2023-10-05 | MM_ITS ---
EXAMINATION: MM screening tery BI w kvng HISTORY: Screening mammogram TECHNIQUE: Craniocaudal and mediolateral oblique 3-D tomosynthesis images were obtained and synthetic 2-D images were generated. CAD analysis was submitted and interpreted. COMPARISON: 09/03/2022, 07/09/2021 bilateral screening mammogram examinations BREAST PARENCHYMAL COMPOSITION: There are scattered areas of fibroglandular density. FINDINGS: Scattered occasional punctate benign microcalcifications in the breasts. There is no eviden ce of suspicious mass, calcification, or architectural distortion to suggest malignancy in either isabelle ast. There has been no suspicious interval change. IMPRESSION: 1. No mammographic evidence of malignancy. 2. Recommend routine screening mammography in one year. BI-RADS Category 2: Benign finding(s). 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
== END 2023-10-05 10:03 ==
PROVIDERS: PCP Internal Medicine; Visit Provider Obstetrics & Gynecology
DX: Z12.31 Encounter for screening mammogram for malignant neoplasm of breast (principal)
CPT/HCPCS: 77063; 77067

== ENCOUNTER 2024-04-01 07:05 | Outpatient (CLI) | payer OTHER, SELFPAY ==
[2024-04-01 07:52] LABS: Basophils Percent Auto 0.6 % (0.2-1.2); Eosinophils Absolute Auto 0.3 K/mm3 (0-0.3); Eosinophils Percent Auto 5.4 % (0-4.4); Hematocrit 41.6 % (37.0-47.0); Hemoglobin 13.5 g/dL (12.0-15.0); Immature Granulocyte Absolute 0.01 K/mm3 (0.00-0.031); Immature Granulocyte Percent A 0.2 % (0-0.5); Lymphocytes Absolute Auto 1.59 K/mm3 (0.9-3.2); Lymphocytes Percent Auto 33.3 % (18.3-44.2); Mean Corpuscular HGB Conc 32.5 g/dl (32-36); Mean Corpuscular Hemoglobin 29.7 pg (26-34); Mean Corpuscular Volume 91.6 fl (80-100); Mean Platelet Volume 9.3 fl (7.4-10.4); Monocytes Absolute Auto 0.5 K/mm3 (0.1-0.6); Monocytes Percent Auto 11.3 % (2.6-8.5); Neutrophils Absolute Auto 2.4 K/mm3 (1.3-6.7); Neutrophils Percent Auto 49.2 % (45.5-73.1); Platelet Count Result 225 k/mm3 (150-375); Red Blood Count 4.54 M/mm3 (4.2-5.4); White Blood Count 4.8 K/mm3 (4.5-10.0)
[2024-04-01 08:10] LABS: Alanine Aminotransferase 21 U/L (6-35); Albumin Level 4.1 g/dL (3.5-5.1); Alkaline Phosphatase 66 U/L (38-126); Anion Gap 9 mmol/L (4-12); Aspartate Amino Transferase 24 U/L (14-36); Bilirubin,Total 0.2 mg/dL (0.2-1.3); Blood Urea Nitrogen 11 mg/dL (7-17); Calcium 9.2 mg/dL (8.4-10.2); Carbon Dioxide 24 mmol/L (22-30); Chloride 106 mmol/L (98-107); Cholesterol 217 mg/dL (0-200); Estimated Glomerular Filt Rate > 60; Glucose 91 mg/dL (65-110); HDL Direct 94 mg/dL; Potassium 4.1 mmol/L (3.4-5.0); Sodium 139 mmol/L (137-145); Triglycerides 187 mg/dL (<150)
[2024-04-01 08:20] LABS: LDL Cholesterol Direct 84 mg/dL
[2024-04-01 08:44] LABS: Vitamin D 25 Hydroxy 55.9 ng/mL
== END 2024-04-01 07:06 | disposition home or self-care (01) ==
LOC: ANHLAB 07:06
PROVIDERS: PCP Internal Medicine; Visit Provider Clinical Nurse Specialist
DX: E55.9 Vitamin D deficiency, unspecified (principal); Z13.228 Encounter for screening for other metabolic disorders; F41.9 Anxiety disorder, unspecified; E78.5 Hyperlipidemia, unspecified; R74.01 Elevation of levels of liver transaminase levels
CPT/HCPCS: 36415; 80053; 80061; 82306; 84443; 85025

== ENCOUNTER 2024-11-03 11:09 | Outpatient (CLI) | payer OTHER, SELFPAY ==
--- NOTE | ~2024-11-03 | MM_ITS ---
EXAMINATION: MM screening trey BI w kvng HISTORY: Screening TECHNIQUE: Craniocaudal and mediolateral oblique 3-D tomosynthesis images were obtained and synthetic 2-D images were generated. CAD analysis was submitted and interpreted. COMPARISON: Comparison to multiple prior studies sequentially, with oldest reviewed study dated 07/06. BREAST PARENCHYMAL COMPOSITION: Not dense: There are scattered areas of fibroglandular density. FINDINGS: There is no evidence of suspicious mass, calcification, or architectural distortion to sugg est malignancy in either breast. There has been no suspicious interval change. IMPRESSION: 1. No mammographic evidence of malignancy. 2. Recommend routine screening mammography in one year. BI-RADS Category 1: Negative Reviewed, dictated and finalized at location A.
== END 2024-11-03 11:10 | disposition home or self-care (01) ==
LOC: MICIMG 11:10
PROVIDERS: PCP Internal Medicine; Visit Provider Obstetrics & Gynecology
DX: Z12.31 Encounter for screening mammogram for malignant neoplasm of breast (principal)
CPT/HCPCS: 77063; 77067